=== PATIENT | male | born 1960 | race Caucasian/White ===

== ENCOUNTER 2016-12-29 19:11 | Emergency (ER) | payer OTHER ==
[~2016-12-29] VITALS: Ht 167.6 cm; Wt 80.0 kg
[~2016-12-29 19:11] MED LIST: CARI350T PO; LISI30TA47 PO; MORP30TA64 PO; MORP60TA37 PO; NAPR-688 PO
[2016-12-29 19:18] VITALS: Ht 167.6 cm; Wt 80.0 kg
[2016-12-29] MEDS ORDERED: ACETAMINOPHEN 500 MG TAB PO STA (19:39)
--- NOTE | 2016-12-29 20:39 | ERD ---
ER Documentation Chief Complaint Date/Time DATE: 12/29/16 TIME: 20:38 Chief Complaint right hand sweeling x 2 days HPI This 48-year-old male complains of right wrist pain after slipping backwards and falling on his outstretched right hand today. He has pain primarily over the dorsum of the right wrist. He has no restricted range of motion weakness. Is no bleeding or redness. Patient denies any other injury other than his right wrist. ROS All systems reviewed and are negative except as per history of present illness. Medications Home Meds Active Scripts Morphine Sulfate* (Ms Contin*) 60 Mg Tablet.sa, 60 MG PO Q12, #14 TAB.SA Prov:ANA LILIA BURRIS MD 06/10/15 Reported Medications Morphine Sulfate (Morphine Sulfate) 30 Mg Tablet, 30 MG PO Q4NARC Y 02/05/12 Carisoprodol* (Soma*) 350 Mg Tablet, 350 MG PO TID 02/05/12 Naproxen* (Naproxen*) 500 Mg Tablet, 500 MG PO BID 02/05/12 Lisinopril* (Lisinopril*) 30 Mg Tablet, 30 MG PO BID 02/05/12 Allergies Allergies: Coded Allergies: No Known Drug Allergies (Verified Allergy, Unknown, 06/10/15) PMhx/Soc History of Surgery: Yes (BACK SX., GASTRIC EXPLORATORY LAPAROTOMY) Anesthesia Reaction: No Hx Neurological Disorder: No Hx Respiratory Disorders: No Hx Cardiac Disorders: Yes (high blood pressure) Hx Psychiatric Problems: No Hx Miscellaneous Medical Probl: Yes (GLAUCOMA) Hx Alcohol Use: Yes (20 YEARS AGO) Hx Substance Use: No Hx Tobacco Use: Yes (20 YEARS AGO) Smoking Status: Former smoker Physical Exam Vitals Vital Signs Date Time Temp Pulse Resp B/P Pulse Ox O2 Delivery O2 Flow Rate FiO2 12/29/16 19:18 98.0 92 20 125/60 98 Physical Exam Const: [] Letter, [id number] per Head: Atraumatic Eyes: Normal Conjunctiva ENT: Normal External Ears, Nose and Mouth. Neck: Full range of motion..~ No meningismus. Resp: Clear to auscultation bilaterally Cardio: Regular rate and rhythm, no murmurs Abd: Soft, non tender, non distended. Normal bowel sounds Skin: No petechiae or rashes Back: No midline or flank tenderness Ext: No cyanosis, or edema. There is some swelling of the dorsum of the right wrist joint. No appreciable significant snuffbox tenderness. is no appreciable deformities, restricted range of motion, weakness, erythema or bleeding Neur: Awake and alert Psych: Normal Mood and Affect Results 24 hrs Current Medications Medications (Trade) Dose Ordered Sig/Cary Route PRN Reason Start Time Stop Time Status Last Admin Dose Admin Acetaminophen (Tylenol Tab) 500 mg ONCE STAT PO 12/29/16 19:39 12/29/16 19:41 DC 12/29/16 19:43 Procedures/MDM X-ray right wrist 3V Interpreted by me: Scaphoid: [Normal] Bones: [No fracture] Joints: [No dislocation] Foreign body: [None]. Impression-no acute fracture identified. 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 Patient placed in a right wrist splint was neurovascular intact after splint. Patient presents with signs and symptoms of right wrist sprain. He is advised to use splint if he has pain and follow-up with orthopedist primary doctor for recheck the next week. Patient was advised to have x-ray repeated in 10-14 days for persistent pain. There is no evidence of bacterial infection, ostium myelitis, deficits, patient does not have a significant snuffbox tenderness. Departure Diagnosis: Primary Impression: Right wrist sprain Encounter type: initial encounter Qualified Code: S63.501A - Right wrist sprain, initial encounter Condition: Stable ANA LILIA BURRIS MD Dec 29, 2016 20:39
--- NOTE | 2016-12-29 20:55 | RADRPT ---
PROCEDURE: XR Wrist and Scaphoid. CLINICAL INDICATION: 48-year-old man. Fall.. TECHNIQUE: Four views of the right wrist and scaphoid. COMPARISON: None available. FINDINGS: Negative for evidence of acute fracture or dislocation. There has been resection of the distal ulna. 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 There is extensive dorsal soft tissue swelling. IMPRESSION: 1. Negative for evidence of acute fracture or dislocation of the right wrist. 2. If there is snuffbox tenderness and clinical concern for scaphoid fracture, recommend treatment and followup radiographs and 7-10 days. 3. Distal ulna resection and radiocarpal osteoarthritis. RPTAT: HCTS Physician Marshall Date Time Electronically viewed and signed by Physician Marshall on 12/29/2016 20:54 CS/
== END 2016-12-29 22:59 | disposition home or self-care (01) ==
LOC: FTE 19:11
DX: S63.501A Unspecified sprain of right wrist, initial encounter (principal); W01.0XXA Fall on same level from slipping, tripping and stumbling without subsequent striking against object, initial encounter; Y92.9 Unspecified place or not applicable; Z87.891 Personal history of nicotine dependence